=== PATIENT | female | born 1995 | race Caucasian/White ===

== ENCOUNTER 2018-03-04 09:57 | Emergency (ER) | payer OTHER ==
[~2018-03-04] VITALS: Ht 177.8 cm; Wt 65.8 kg
[2018-03-04 09:57] VITALS: BP 124/84
--- NOTE | 2018-03-04 10:13 | NUR ---
Patient discharged to home in stable condition. Written and verbal after care instructions given. Patient verbalizes understanding of instruction.
== END 2018-03-04 10:14 | disposition home or self-care (01) ==
LOC: ER 10:08
DX: J02.0 Streptococcal pharyngitis (principal)
CPT/HCPCS: 99281; A4606; Z7610; Z7502